=== PATIENT | female | born 1950 | race Caucasian/White ===

== ENCOUNTER → 2016-09-05 | Outpatient (CLI) | payer MEDICARE, OTHER ==
[~2016-09-05] MED LIST: ATIVAN0.5 MG PO; ESTRADIOL0.5 MG PO; GLYBURIDE-METF1 EAC1 PO; LEVEMIR100 UNIT/1 SUBCUT; MOBIC7.5 MG PO; NORVASC10 MG PO; PAXIL40 MG PO; PRILOSEC20 MG PO; SYNTHROID25 MCG PO
== END | disposition short-term general hospital (02) ==
LOC: CLCARD 03:02
DX: I13.0 Hypertensive heart and chronic kidney disease with heart failure and stage 1 through stage 4 chronic kidney disease, or unspecified chronic kidney disease (principal); I44.7 Left bundle-branch block, unspecified; I50.20 Unspecified systolic (congestive) heart failure; E11.22 Type 2 diabetes mellitus with diabetic chronic kidney disease; I25.10 Atherosclerotic heart disease of native coronary artery without angina pectoris; N18.9 Chronic kidney disease, unspecified; E78.5 Hyperlipidemia, unspecified; I34.0 Nonrheumatic mitral (valve) insufficiency